=== PATIENT | male | born 1960 | race American Indian/Alaskan Native ===

== ENCOUNTER 2018-11-11 14:13 | Inpatient (IN) | payer MEDICARE ==
--- NOTE | 2018-11-11 15:02 | C.PDOC ---
History Of Present Illness 58 year old male presents to ED requesting detox from heroin. Patient last used heroin before coming to the ED. He has a PMHx of CHF and has a pacemaker. Patient has been pre-screened for detox. He has no physical complaints, suicidal ideation, or homicidal ideation. Time Seen by Provider: 11/11/18 14:26 Chief Complaint (Nursing): Substance Abuse History Per: Patient History/Exam Limitations: no limitations Onset/Duration Of Symptoms: Other (requesting detox) Suicide/Self Injury Attempted (Context): None Modifying Factor(s): Other (heroin) Associated Symptoms: denies: Suicidal Thoughts, Suicidal Plan, Other (homicidal ideation) Past Medical History Reviewed: Historical Data, Nursing Documentation, Vital Signs Vital Signs: Last Vital Signs Temp 97.6 F 11/11/18 14:16 Pulse 67 11/11/18 14:16 Resp 17 11/11/18 14:16 BP 125/72 11/11/18 14:16 Pulse Ox 98 11/11/18 14:16 - Medical History PMH: CHF, HTN Surgical History: Coronary Stent (X3), Pacemaker Family History: States: Unknown Family Hx - Social History Hx Alcohol Use: Yes Hx Substance Use: Yes - Immunization History Hx Tetanus Toxoid Vaccination: No Hx Influenza Vaccination: No Hx Pneumococcal Vaccination: No Review Of Systems Constitutional: Negative for: Fever, Chills, Weakness Cardiovascular: Negative for: Chest Pain, Palpitations Respiratory: Negative for: Cough, Shortness of Breath Gastrointestinal: Negative for: Nausea, Vomiting, Abdominal Pain Musculoskeletal: Negative for: Back Pain Skin: Negative for: Rash Neurological: Negative for: Weakness, Numbness, Dizziness Psych: Negative for: Suicidal ideation, Other (homicidal ideation) Physical Exam - Physical Exam Appears: Well, Non-toxic, No Acute Distress Skin: Normal Color, Warm, Dry Head: Atraumatic, Normacephalic Neck: Normal ROM, Supple Chest: Symmetrical, No Deformity Cardiovascular: Rhythm Regular, No Murmur Respiratory: No Accessory Muscle Use Gastrointestinal/Abdominal: Soft, No Tenderness Extremity: Capillary Refill (<2 seconds) Extremity: Bilateral: Atraumatic, Normal Color And Temperature, Normal ROM Neurological/Psych: Oriented x3, Normal Speech, Normal Cognition ED Course And Treatment - Laboratory Results Result Diagrams: 11/11/18 15:30 11/11/18 15:30 Lab Interpretation: Normal O2 Sat by Pulse Oximetry: 98 (in RA) Pulse Ox Interpretation: Normal Progress Note: Case discussed with crisis cad design engineer who will evaluate patient. Patient medically cleared for crisis evaluation Reassessment Condition: Unchanged - Physician Consult Information Physician Contacted: Arvin Sousa Outcome Of Conversation: admit Medical Decision Making Medical Decision Making: Impression: 58 year old male requesting detox from heroin. Plan: Labs ordered with drug screen and UA Spoke with Crisis. Disposition Discussed With Dr.: Arvin Sousa Doctor Will See Patient In The: Hospital - Disposition Disposition: HOME/ ROUTINE Disposition Time: 17:00 Condition: STABLE - POA Present On Arrival: None - Clinical Impression Clinical Impression: Drug abuse - PA / JAVA SECURITY ENGINEER / Resident Statement MD/DO has reviewed & agrees with the documentation as recorded. (Dahiana Cooper) - Scribe Statement The provider has reviewed the documentation as recorded by the Scribe (Dahiana Cooper) All medical record entries made by the Scribe were at my direction and personally dictated by me. I have reviewed the chart and agree that the record accurately reflects my personal performance of the history, physical exam, medical decision making, and the department course for this patient. I have also personally directed, reviewed, and agree with the discharge instructions and disposition. Decision To Admit - Pt Status Changed To: Hospital Disposition Of: Inpatient - Admit Certification Admit to Inpatient:: After my assessment, the patient will require hospitalization for at least two midnights. This is because of the severity of symptoms shown, intensity of services needed, and/or the medical risk in this patient being treated as an outpatient. - InPatient: Physician Admission Certification: I certify that this patient requires 2 or more midnights of care for the following reason:: opioid abuse disorder - . Bed Request Type: Detox Admitting Physician: Arvin Sousa Patient Diagnosis: Drug abuse
[2018-11-11 15:40] LABS: BASO % 0.3 % (0.0-2.0); EOS # 0.1 K/uL (0.0-0.7); EOS % 1.5 % (0.0-4.0); HEMOGLOBIN 12.7 g/dL (12.0-18.0); LYMPH # 1.4 K/uL (1.0-4.3); MEAN CELL VOLUME 86.8 fL (80.0-94.0); MEAN CORPUSCULAR HEMOGLOBIN 27.7 pg (27.0-31.0); MEAN PLATELET VOLUME 7.4 fL (7.2-11.7); MONO % 12.7 % (0.0-10.0); NEUT # 5.3 K/uL (1.8-7.0); NEUT % 67.5 % (50.0-75.0); NRBC % 0.1 % (0.0-2.0); RBC 4.59 Mil/uL (4.40-5.90); RED CELL DISTRIBUTION WIDTH 15.6 % (11.5-14.5); WHITE BLOOD COUNT 7.9 K/uL (4.8-10.8)
[2018-11-11 15:47] LABS: SQUAMOUS EPITHIAL 4 /hpf (0-5); URINE BILIRUBIN NEGATIVE (NEGATIVE); URINE BLOOD 1+ (NEGATIVE); URINE CLARITY Hazy (Clear); URINE COLOR Yellow (YELLOW); URINE GLUCOSE (UA) NORMAL (Normal); URINE LEUKOCYTE ESTERASE NEG Leu/uL (Negative); URINE PROTEIN NEGATIVE (NEGATIVE)
[2018-11-11 15:54] LABS: ALB/GLOB RATIO 1.2 (1.0-2.1); ALBUMIN 4.1 g/dL (3.5-5.0); ALT/SGPT 26 U/L (21-72); AST/SGOT 28 U/L (17-59); BLOOD UREA NITROGEN 19 mg/dL (9-20); CALCIUM 9.2 mg/dl (8.6-10.4); GFR NON-AFRICAN AMERICAN > 60
[2018-11-11 16:03] LABS: BARBITURATES, UR NEGATIVE (NEGATIVE); BENZODIAZEPINES, UR NEGATIVE (NEGATIVE); PHENCYCLIDINE, UR NEGATIVE (NEGATIVE)
[2018-11-11 16:09] LABS: OPIATES, UR POSITIVE (NEGATIVE)
--- NOTE | 2018-11-11 18:59 | PCM.BM ---
<Lizbeth Hernandez - Last Filed: 11/11/18 18:55> Treatment Plan Problems - Problems identified on initial assessmt Defensive Date Initiated: 11/11/18 Time Initiated: 18:57 Assessment reference: NA Status: Active chronic low self esteem Date Initiated: 11/11/18 Time Initiated: 18:59 Assessment reference: NA Status: Active Treatment assets and liabiliti Patient Assests: cooperative, ADL independent Patient Liabilities: financial problems, substance abuse, medical problems - Milieu Protocol Maintain good personal hygiene: daily Encourage regular showers, daily Remind patient to perform daily oral care, daily Assist patient to perform ADL's Conduct patient checks and document Observation sheet: Q15 minutes Maintain personal safety: every shift Educate patient to report safety concerns to staff, every shift Monitor environment for contraband/sharps Medication safety: Monitor for expected outcome, potential side effects: every shift, Assess barriers to learning: every shift, Assess readiness for medication education: every shift <Teresa Gupta - Last Filed: 11/12/18 15:11> Family Contact Family involvement: Famliy/SO not involved - Goals for Treatment Patient goals for treatment: Complete detox and transiton to a long-term rehab. Discharge/Continuing Care - Education Needs Education Needs: Patient Medication, Patient Diagnosis/Disease Process, Patient Coping Skills, Patient Anger Management skills, Patient Placement options, Patient Community resources - Discharge Discharge Criteria: No longer exhibiting s/s of withdrawal, Reduction of target symptoms Discharge to:: Substance Abuse Rehab - Treatment Team Participation Patient/Family/SO Statement: 11/12/18 15:11 "I gotta go to a long-term rehab. My needs help too..." Discussed with Family/SO: No Was Patient/Family/SO present at Treatment Team Meeting: Yes <Vee Teran - Last Filed: 11/16/18 18:24>
--- NOTE | 2018-11-12 10:08 | PCM.PSYCH ---
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 Patient comes to detox unit for cessation of heroin use. His typical daily intake is 15 bags (a bundle and a half). He has been using heroin for 20 years. He has never had an overdose. He first started using heroin while he was smoking cocaine (he denies current use of cocaine). Patient has a 25 year history of alcohol use and currently drinks a 6 pack of beer and a pint of whisky daily. Patient smokes 1 pack of cigarettes daily and has been smoking for 20 years. Patient complains of nausea, diarrhea, restlessness, piloerection, diaphoresis, yawning, and rhinorrhea. Patient also expresses depressed mooD and passive SI. Patient admits to feelings of paranoia, but only directed towards law enforcement and when he is actively using/in the streets. Patient states that the withdrawal he experiences from cessation of alcohol use is more severe than what he experiences from opioid cessation. Patient received methadone from his "" who is currently a patient at a methadone clinic, is currently using, and is interested in detox as well. Patient is interested in long term care administrator rehab. He was turned away from another facility due to his medical history. Patient attributes his guilt to his relationship with his grandchildren, and this is a major motivating factor for him to stop using drugs. PMH: HTN, DM, Atrial fibrillation, pacemaker PSH: pacemaker palced 33 years ago and replaced every 11 years, 3 stents Family hx: Mother CAD Meds: Aspirin, Amiodarone, carvedilol, losartan, clopidogrel, rosuvastatin, famotidine, gabapentin, hydroxyzine, Maalox Allergies: nkda Current Medications: Active Medications Generic Name Dose Route Start Last Admin Trade Name Freq PRN Reason Stop Dose Admin Clonidine HCl 0.1 mg 11/11/18 19:43 11/12/18 09:36 Catapres PO 0.1 mg Q4 PRN Administration COWS Score More or Equal to 5 Hydroxyzine HCl 50 mg 11/11/18 19:45 11/11/18 19:52 Atarax PO 50 mg Q6 PRN Administration Anxiety Influenza Virus Vaccine 60 mcg 11/14/18 10:00 Flucelvax Quad [id number] Syr IM 11/14/18 10:01 .ONCE ONE Loperamide HCl 2 mg 11/11/18 19:43 Imodium PO Q8 PRN Diarrhea Ondansetron HCl 4 mg 11/11/18 19:43 11/11/18 19:51 Zofran Tab PO 4 mg Q8 PRN Administration Nausea/Vomiting Pneumococcal Polyvalent Vaccine 0.5 ml 11/14/18 10:00 Pneumovax 23 Vaccine IM 11/14/18 10:01 .ONCE ONE Trazodone HCl 50 mg 11/11/18 19:55 11/11/18 21:55 Desyrel PO 50 mg HS PRN Administration Insomnia Past Psychiatric History - Past Psychiatric History Previous Treatment History: Intensive Outpatient Pertinent Medical Hx (Current Medical&Sleep Prob, Allergies): Allergies Allergy/AdvReac Type Severity Reaction Status Date / Time No Known Allergies Allergy Unverified 11/11/18 14:21 No Known Home Med 11/11/18 Review of Systems - Neurological Neurological: Tremor - Psychiatric Psychiatric: Abnormal Sleep Pattern, Anhedonia, Anxiety, Depression, Difficulty Concentrating, Memory Loss. absent: Homicidal Ideation, Suicidal Ideation (no urge) Mental Status Examination - Personal Presentation Personal Presentation: Looks stated age - Affect Affect: Constricted - Motor Activity Motor Activity: Calm - Reliability in Providing Information Reliability in Providing Information: Good - Speech Speech: Organized - Mood Mood: Depressed, Anxious - Formal Thought Process Formal Thought Process: No Impairment - Cognitive Functions Orientation: Person, Place, Situation, Time Sensorium: Alert Attention/Concentration: Easily distracted Estimate of Intelligence: Average Judgement: Intact, as evidence by: Insight regarding need for hospitalization Memory: Recent intact, as evidence by: Ability to recall events of the day, Remote intact, as evidenced by: Abilit to recall sig. life events - Risk Risk: Withdrawal, Diminished functioning - Strength & Assets Inventory Strength & Assets Inventory: Cooperative DSM 5 DX - DSM 5 DSM 5 Diagnosis: Opioid withdrawal Opioid use d/o - severe Depressive d/o - unspecified - Recommended/Plan of Treatment Treatment Recommendations and Plan of Treatment: Taper with methadone Remeron for depressoin Gabapentin for augmentation if needed As needed medications All risks, benefits and alternatives of the meds discussed, and the pt agreed and understood. Attend groups and activities Supportive therapy and psychoeducation IA for abstinence CBT for relapse prevention Encourage MAT Refer to rehab or IOP, and self-help groups Teach healthy lifestyle methods, i.e. diet, exercise, meditation Smoking cessation with IA Nicotine patch if needed 34 min Projected ELOS: 5 days
[2018-11-12] MEDS ORDERED: Aluminum Hydroxide/Magnesium Hydroxide Susp (30 mL) PO PRN (10:30)
[2018-11-12] MEDS: Multiple Vitamins Tab PO SCH (10:57)
[2018-11-13] MEDS: Multiple Vitamins Tab PO SCH (09:48)
--- NOTE | 2018-11-13 12:57 | PCM.PYCHPN ---
Psychiatric Progress Note - Psychiatric Progress Note Patient seen today, length of contact: 16 min Patient Chief Complaint: "I am not OK" Problems Identified/Issues Discussed: The pt is seen, chart reviewed, case is discussed with staff. The pt is compliant with medications and reports no side-effects. Symptoms are improving but needs more time to stabilize and to avoid relapse. Pt attends groups and activities. Support given, psycho-education provided. After care discussed. Medication Change: Yes (detox changes daily) Medical Record Reviewed: Yes Mental Status Examination - Cognitive Function Orientation: Person, Place, Situation, Time Memory: Intact Attention: WNL Concentration: Poor Association: WNL Fund of Knowledge: WNL - Mood Mood: Depressed, Anxious - Affect Affect: Constricted - Formal Thought Process Formal Thought Process: No Impairment - Suicidal Ideation Suicidal Ideation: No - Homicidal Ideation Homicidal Ideation: No Goal/Treatment Plan - Goal/Treatment Plan Need for Continued Stay: Discharge may exacerbated symptoms, Severe functional impairment Progress Toward Problem(s) and Goals/Treatment Plan: Taper with methadone Remeron for depressoin Gabapentin for augmentation if needed As needed medications All risks, benefits and alternatives of the meds discussed, and the pt agreed and understood. Attend groups and activities Supportive therapy and psychoeducation [place] for abstinence CBT for relapse prevention Encourage MAT Refer to rehab or IOP, and self-help groups Teach healthy lifestyle methods, i.e. diet, exercise, meditation Smoking cessation with [place] Nicotine patch if needed
--- NOTE | 2018-11-14 07:52 | PCM.PYCHPN ---
Psychiatric Progress Note - Psychiatric Progress Note Patient seen today, length of contact: 15 min Patient Chief Complaint: I am still withdrawing. Problems Identified/Issues Discussed: Patient was seen and evaluated, chart reviewed and discussed with staff. He reports some anxiety but denies any feelings of hopelessness or helplessness. Patient reports withdrawal symptoms including anxiety, headache, nausea, cramps and irritability. He denies any auditory or visual hallucinations. He is taking medication but denies any side effects Supportive therapy was given. Medication Change: Yes Medical Record Reviewed: Yes Mental Status Examination - Cognitive Function Orientation: Person, Place, Situation, Time Memory: Intact Attention: WNL Concentration: Poor Association: WNL Fund of Knowledge: Poor - Mood Mood: Depressed, Anxious - Affect Affect: Constricted - Speech Speech: Soft - Formal Thought Process Formal Thought Process: No Impairment - Suicidal Ideation Suicidal Ideation: No - Homicidal Ideation Homicidal Ideation: No Goal/Treatment Plan - Goal/Treatment Plan Need for Continued Stay: Remain at risks for inpatient hospitalization Progress Toward Problem(s) and Goals/Treatment Plan: Opioid withdrawal Opioid use d/o - severe Depressive d/o - unspecified -Taper with methadone -Remeron for depressoin -Gabapentin for augmentation if needed -As needed medications -All risks, benefits and alternatives of the meds discussed, and the pt agreed and understood. -Attend groups and activities -Supportive therapy and psychoeducation -NH for abstinence -CBT for relapse prevention -Encourage MAT -Refer to rehab or IOP, and self-help groups -Teach healthy lifestyle methods, i.e. diet, exercise, meditation -Smoking cessation with NH -Nicotine patch if needed - Smoking Cessation Smoking Cessation Initiated: No
[2018-11-14] MEDS: Multiple Vitamins Tab PO SCH (09:30)
[2018-11-14] MEDS ORDERED: Influenza Vaccine 60 mcg/0.5 mL SYR (4YR UP) IM ONE (10:00)
[2018-11-14] MEDS ORDERED: Pneumococcal 23-Valent Vaccine IM ONE (10:00)
--- NOTE | 2018-11-15 07:37 | RAD ---
Chest x-ray two views History: Rehab placement. Comparison: None available. Findings: Patchy increased markings at the left lung base with blunted left costophrenic angle which may represent pleural thickening and or trace effusion. Mild nodularity at the right costophrenic angle. Venous congestion. Right hilar prominence. Left-sided pacemaker. Tortuous ectatic aorta. Cardiomegaly. Degenerative changes in the spine and shoulders. Impression: Patchy increased markings at the left lung base with blunted left costophrenic angle which may represent pleural thickening and or trace effusion. Mild nodularity at the right costophrenic angle. Venous congestion. Right hilar prominence. Left-sided pacemaker. Tortuous ectatic aorta. Cardiomegaly.
[2018-11-15] MEDS: Multiple Vitamins Tab PO SCH (09:32)
[2018-11-16] MEDS: Multiple Vitamins Tab PO SCH (09:29)
--- NOTE | 2018-11-16 09:56 | PCM.PYCHPN ---
Psychiatric Progress Note - Psychiatric Progress Note Patient seen today, length of contact: 15 min Patient Chief Complaint: I am feeling little better. Problems Identified/Issues Discussed: Patient was seen and evaluated, chart reviewed and discussed with staff. The patient reports some improvement in his mood and anxiety. He reports some improvement in the withdrawal symptoms but still reports anxiety, headache, cramps and irritability. He denies any suicidal ideation/homicidal ideation and denies any auditory or visual hallucinations. He is taking medication but denies any side effects. Supportive therapy was given. Medication Change: Yes Medical Record Reviewed: Yes Mental Status Examination - Cognitive Function Orientation: Person, Place, Situation, Time Memory: Intact Attention: WNL Concentration: Poor Association: WNL Fund of Knowledge: Poor - Mood Mood: Depressed, Anxious - Affect Affect: Constricted - Speech Speech: Soft - Formal Thought Process Formal Thought Process: No Impairment - Suicidal Ideation Suicidal Ideation: No - Homicidal Ideation Homicidal Ideation: No Goal/Treatment Plan - Goal/Treatment Plan Need for Continued Stay: Remain at risks for inpatient hospitalization Progress Toward Problem(s) and Goals/Treatment Plan: Opioid withdrawal Opioid use d/o - severe Depressive d/o - unspecified -Taper with methadone -Remeron for depressoin -Gabapentin for augmentation if needed -As needed medications -All risks, benefits and alternatives of the meds discussed, and the pt agreed and understood. -Attend groups and activities -Supportive therapy and psychoeducation -MT for abstinence -CBT for relapse prevention -Encourage MAT -Refer to rehab or IOP, and self-help groups -Teach healthy lifestyle methods, i.e. diet, exercise, meditation -Smoking cessation with MT -Nicotine patch if needed
[2018-11-16 20:26] VITALS: PULSE 60
[2018-11-17 09:24] VITALS: BP 119/77; RESP 20; TEMP 97.5; O2SAT 97
[2018-11-17] MEDS: Multiple Vitamins Tab PO SCH (09:52)
--- NOTE | 2018-11-17 19:31 | PCM.PYCHDC ---
Mental Status Examination - Mental Status Examination Orientation: Person, Place, Situation, Time Memory: Intact Mood: Neutral Discharge Summary - Discharge Note Consultations:: List each consultation separately and include: 1. Reason for request. 2. Findings. 3. Follow-up Summary of Hospital Course include:: 1. Description of specific treatment plan utilized for patients during their course of treatmen. 2. Summarize the time- course for resolution of acute symptoms and/or regressed behaviors. 3. Describe issues identified and worked on during hospitalization. 4. Describe medication utilized. 5. Describe medical problems identified and treated. 6. Reassessment of suicide risk - Final Diagnosis (DSM 5) Condition upon Discharge: STABLE Disposition: HOME/ ROUTINE Prescriptions/Medication Reconciliation: Amiodarone [Cordarone] 200 mg PO TID #90 tab Aspirin [Aspirin Chewable] 81 mg PO DAILY #30 chew Carvedilol [Coreg] 12.5 mg PO BID #60 tab Clopidogrel [Plavix] 75 mg PO DAILY #30 tab Gabapentin [Neurontin] 100 mg PO BID #60 cap Losartan [Cozaar] 50 mg PO DAILY #30 tab Rosuvastatin Calcium [Crestor] 5 mg PO HS #30 tab Thiamine [Vitamin B1 Tab] 100 mg PO DAILY #30 tab traZODone [Desyrel] 50 mg PO HS PRN #30 tab PRN Reason: Insomnia
== END 2018-11-17 11:35 | disposition home or self-care (01) | DRG 897 ==
LOC: C.ER 14:13 → C.7D 16:54
DX: F11.23 Opioid dependence with withdrawal (principal); F14.90 Cocaine use, unspecified, uncomplicated; F22 Delusional disorders; F41.9 Anxiety disorder, unspecified; I48.91 Unspecified atrial fibrillation; Z59.0 Homelessness; F17.210 Nicotine dependence, cigarettes, uncomplicated; Z95.0 Presence of cardiac pacemaker; Z95.5 Presence of coronary angioplasty implant and graft; I50.9 Heart failure, unspecified; I11.0 Hypertensive heart disease with heart failure; E11.9 Type 2 diabetes mellitus without complications; F32.9 Major depressive disorder, single episode, unspecified